=== PATIENT | female | born 1970 | race Caucasian/White ===

== ENCOUNTER 2019-01-15 03:36 | Emergency (ER) | payer OTHER ==
[~2019-01-15] VITALS: Ht 167.6 cm; Wt 47.7 kg
[2019-01-15 03:41] VITALS: BP 146/101; Ht 167.6 cm; Wt 47.7 kg
== END 2019-01-15 06:41 | disposition left against medical advice (07) ==
LOC: ED 03:36
DX: Z53.21 Procedure and treatment not carried out due to patient leaving prior to being seen by health care provider (principal)